=== PATIENT | male | born 1950 | race Caucasian/White ===

== ENCOUNTER 2019-07-29 05:09 | Day surgery (SDC) | payer BC ==
[2019-07-23 08:46] LABS: BASOPHILS % (AUTO) 0.6 % (0-1); EOSINOPHILS # (AUTO) 0.2 X10'3 (0-0.9); EOSINOPHILS % (AUTO) 2.7 % (0-6); HEMATOCRIT 43.7 % (42.0-52.0); HEMOGLOBIN 14.6 g/dl (14.0-17.9); LYMPHOCYTES # (AUTO) 1.1 X10'3 (1.1-4.8); LYMPHOCYTES % (AUTO) 18.2 % (21-51); MEAN CORPUSCULAR HEMOGLOBIN 29.1 PG (27.0-31.0); MEAN CORPUSCULAR HGB CONC 33.4 g/dL (33.0-36.5); MEAN CORPUSCULAR VOLUME 87.1 FL (78-98); MONOCYTES # (AUTO) 0.5 X10'3 (0-0.9); MONOCYTES % (AUTO) 7.5 % (2-12); NEUTROPHILS # (AUTO) 4.3 X10'3 (1.8-7.7); PLATELET COUNT 230 X10'3 (140-440); RED BLOOD COUNT 5.01 X10'6 (4.70-6.10); RED CELL DISTRIBUTION WIDTH 14.2 % (11.5-14.5); WHITE BLOOD COUNT 6.1 X10'3 (4.5-11.0)
[2019-07-23 08:54] LABS: ALBUMIN 3.9 G/DL (3.4-5.0); ANION GAP 8 (8-16); BLOOD UREA NITROGEN 14 MG/DL (7-18); BUN/CREATININE RATIO 10.8 (5.4-32.0); CALCIUM 8.9 MG/DL (8.5-10.1); CHLORIDE 102 MMOL/L (99-107); GLUCOSE 232 MG/DL (70-104); POTASSIUM 4.6 MMOL/L (3.5-5.1); SODIUM 139 MMOL/L (135-145); TOTAL CARBON DIOXIDE 29.5 MMOL/L (24-32); eGFR 55 ML/MIN
[2019-07-23 08:57] LABS: PARTIAL THROMBOPLASTIN TIME 27 SECONDS (22-32)
[~2019-07-29] VITALS: Ht 175.3 cm; Wt 90.5 kg
[2019-07-29] VITALS (13 sets, daily range): BP systolic 110–153; BP diastolic 63–96
[~2019-07-29 05:09] MED LIST: NPH,100V SQ
[2019-07-29] MEDS ORDERED: iohexol 350MG/ML 100ml bottle IV ONE ×2 (05:16→07:11)
[2019-07-29] MEDS ORDERED: LIDOcaine 1% (10mg/ml)w/preservative injection 20ml MDV ONE (05:16)
[2019-07-29] MEDS ORDERED: heparin 1,000unit/ml 10ml vial 10 ML ONE ×2 (05:17→07:09)
[2019-07-29] MEDS ORDERED: verapamil 2.5 mg/ml inj IV ONE (05:17)
[2019-07-29] MEDS ORDERED: nitroGLYCERIN-Tridil 50MG/D5W 250 ML IV ONE (05:17)
[2019-07-29] MEDS ORDERED: LIDOcaine/PRILOcaine 5gm cream TP ONE (05:30)
[2019-07-29] MEDS ORDERED: diphenhydrAMINE 25mg capsule PO PRN (05:30)
[2019-07-29] MEDS ORDERED: LORazepam 0.5 MG tablet PO PRN (05:30)
[2019-07-29] MEDS ORDERED: normal saline 1,000 ML IV SCH (05:30)
[2019-07-29] MEDS ORDERED: LIRA0.6P SQ (05:55)
[2019-07-29] MEDS ORDERED: GABA300C PO (05:55)
[2019-07-29] MEDS ORDERED: LISI2.5T2 PO (05:55)
[2019-07-29] MEDS ORDERED: METF-900 PO (05:55)
[2019-07-29] MEDS ORDERED: LANTUS SQ (05:55)
[2019-07-29] MEDS ORDERED: OMEP-50 PO (05:55)
[2019-07-29] MEDS ORDERED: LOVA20TA2 PO (05:55)
[2019-07-29] MEDS ORDERED: NORT10CA2 PO (05:55)
[2019-07-29] MEDS ORDERED: fentaNYL/PF 50MCG/1 ML 2ML syringe ONE (06:39)
[2019-07-29] MEDS ORDERED: midazolam 2 mg/2 ml injection ONE ×2 (06:39→06:55)
[2019-07-29] MEDS ORDERED: ticagrelor 90mg tablet ONE (07:19)
[2019-07-29] MEDS ORDERED: proCHLORperazine 10 MG/2 ml inj IV PRN (07:55)
[2019-07-29] MEDS ORDERED: nitroGLYCERIN 0.4mg SUBLingual tab SL PRN (07:55)
[2019-07-29] MEDS ORDERED: ondansetron/PF 4mg/2ml inj IV PRN (07:55)
[2019-07-29] MEDS ORDERED: OXAZEpam 15mg capsule PO PRN (07:55)
== END 2019-07-29 11:50 | disposition home or self-care (01) ==
LOC: SSTAY O 05:09
PROVIDERS: ATTEND Internal Medicine Interventional Cardiology
DX: R94.39 Abnormal result of other cardiovascular function study (principal); R07.9 Chest pain, unspecified; I25.10 Atherosclerotic heart disease of native coronary artery without angina pectoris; I25.82 Chronic total occlusion of coronary artery; I10 Essential (primary) hypertension; E11.9 Type 2 diabetes mellitus without complications; N40.0 Benign prostatic hyperplasia without lower urinary tract symptoms; E78.5 Hyperlipidemia, unspecified; Z79.01 Long term (current) use of anticoagulants; Z79.899 Other long term (current) drug therapy; Z79.4 Long term (current) use of insulin; F17.210 Nicotine dependence, cigarettes, uncomplicated
CPT/HCPCS: 36415; 80048; 82948; 85025; 85610; 85730; 93005; 93458; 99152; 99153; C1769; C1874; C1894; C9600; J1644; J2001; J2250; J3010; J7030; Q0163; Q9967; C1725; C1751; C1760; J3490